=== PATIENT | female | born 1955 | race American Indian/Alaskan Native ===

== ENCOUNTER 2020-08-26 10:34 | Emergency (ER) | payer MEDICARE ==
--- NOTE | 2020-08-26 10:49 | Emergency Department Report ---
Blank Doc - Documentation Documentation: 65-year-old female that presents with left wrist lac. This initial assessment/diagnostic orders/clinical plan/treatment(s) is/are subject to change based on patient's health status, clinical progression and re- assessment by fellow clinical providers in the ED. Further treatment and workup at subsequent clinical providers discretion. Patient/guardians urged not to elope from the ED as their condition may be serious if not clinically assessed and managed. Initial orders include: 1- Patient sent to [facility] for further evaluation and treatment 2- xrays
[2020-08-26 10:51] VITALS: BP 121/77
[2020-08-26] MEDS ORDERED: LIDOCAINE (1%) 10 MG/1 ML VIAL 20 ML MDV INFILTRATI ONE (10:52)
--- NOTE | 2020-08-26 11:25 | XRay Report ---
LEFT WRIST 3 VIEWS INDICATION: lac. COMPARISON: None. IMPRESSION: No acute osseous or soft tissue abnormality. No significant DJD. No radiopaque foreig n body is detected. Signer Name: Brendan Dailey Jr, MD Signed: 08/26/2020 11:21 AM Workstation Name: [id number]
--- NOTE | 2020-08-26 11:41 | Emergency Department Report ---
ED Laceration HPI - HPI Chief Complaint: Wound/Laceration Stated Complaint: LT HAND LACERATON Time Seen by Provider: 08/26/20 10:48 Location: Upper Extremity Severity: mild Tetanus Status: Up to Date Laceration Symptoms: Yes Pain, No Foreign Body Sensation, No Numbness, No Weakness Other History: left wrist laceration controlled 1 cm length ED Review of Systems ROS: Stated complaint: LT HAND LACERATON Other details as noted in HPI Comment: All other systems reviewed and negative ED Past Medical Hx - Past Medical History Previous Medical History?: Yes Additional medical history: Vertigo. Sinus problems - Surgical History Past Surgical History?: Yes Hx Cholecystectomy: Yes - Social History Smoking Status: Never Smoker Substance Use Type: None - Medications Home Medications: Home Medications Medication Instructions Recorded Confirmed Last Taken Type HYDROcodone/APAP 5-325 [[place] 1 each PO Q6HR PRN #20 tablet 01/30/14 Unknown Rx 5/325 mg] Meclizine HCl [Antivert] 25 mg PO TID PRN #30 tablet 01/30/14 Unknown Rx Metoclopramide [Reglan] 10 mg PO TID PRN #30 tablet 01/30/14 Unknown Rx Chlorhexidine Gluconate [Hibiclens] 10 ml TP BID #240 liquid 08/26/20 Unknown Rx cephALEXin [Keflex] 500 mg PO Q6HR #40 capsule 08/26/20 Unknown Rx Laceration Physical Exam - Exam General: Vital signs noted. No distress. Alert and acting appropriately. Laceration Location: Upper Extremity Full Body Front + Back: 1 - wrist laceration Laceration Exam: Yes Normal Distal CMS, No Foreign Body, No Exposed Tendon, Vessel, or Nerve, No Tendon Injury ED Course Vital Signs 08/26/20 10:49 Temperature 97.9 F Pulse Rate 76 Respiratory 16 Rate Blood Pressure 121/77 [Right] O2 Sat by Pulse 100 Oximetry - Procedure Description Procedures done: tissue adhesive to wrist applied. hemostasis acheived Critical care attestation.: If time is entered above; I have spent that time in minutes in the direct care of this critically ill patient, excluding procedure time. ED Disposition Clinical Impression: Wrist laceration Disposition: DC-01 TO HOME OR SELFCARE Is pt being admited?: No Does the pt Need Aspirin: No Condition: Stable Instructions: Laceration Care, Adult, Sutures, Moncho, or Adhesive Wound Closure Prescriptions: Chlorhexidine Gluconate [Hibiclens] 10 ml TP BID #240 liquid cephALEXin [Keflex] 500 mg PO Q6HR #40 capsule Referrals: PRIMARY CARE, [Primary Care Provider] - 3-5 Days
== END 2020-08-26 11:46 | disposition home or self-care (01) ==
LOC: ED 10:34
DX: S61.512A Laceration without foreign body of left wrist, initial encounter (principal); Z90.49 Acquired absence of other specified parts of digestive tract; Z79.899 Other long term (current) drug therapy; X58.XXXA Exposure to other specified factors, initial encounter; Y93.89 Activity, other specified; Y92.89 Other specified places as the place of occurrence of the external cause; Y99.8 Other external cause status
CPT/HCPCS: 99283

== ENCOUNTER 2021-03-19 12:36 | Emergency (ER) | payer MEDICARE, OTHER ==
[2021-03-19 13:17] VITALS: BP 125/78
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
== END 2021-03-19 17:36 | disposition home or self-care (01) ==
LOC: ED 12:36
DX: T14.8XXA Other injury of unspecified body region, initial encounter (principal); E11.8 Type 2 diabetes mellitus with unspecified complications; L98.8 Other specified disorders of the skin and subcutaneous tissue; Z98.890 Other specified postprocedural states; V89.2XXA Person injured in unspecified motor-vehicle accident, traffic, initial encounter; Y93.89 Activity, other specified; Y92.89 Other specified places as the place of occurrence of the external cause; Y99.8 Other external cause status
CPT/HCPCS: 72040; 72070; 72100; 82962; 99283